=== PATIENT | male | born 1985 | race Caucasian/White ===

== ENCOUNTER → 2021-03-04 | Outpatient (CLI) | payer OTHER ==
--- NOTE | 2021-03-04 18:46 | CONS ---
CONSULTATION DATE OF SERVICE: 03/04/2021 This 35-year-old gentleman was evaluated in the sleep center for possible obstructive sleep apnea-hypopnea syndrome. HISTORY OF PRESENT ILLNESS/SLEEP-WAKE EVALUATION: Patient's usual sleep schedule is from 10 p.m. to 7 a.m. on weekdays and from 11:30 p.m. to 9 a.m. on weekends. No problems with falling asleep, although he reads in bed. He usually sleeps on the side position. The patient denied any significant snoring. He wakes up from sleep several times with nocturia. He does not take any naps during the day. No history of hypnagogic hallucinations, sleep paralysis or cataplexy. [place] Sleepiness Scale is 3. PAST MEDICAL HISTORY: Positive for hypertension, diabetes, hyperlipidemia. PAST SURGICAL HISTORY: None. MEDICATIONS: 1. Metformin 500 mg twice a day. 2. Lisinopril 20 mg once a day. 3. Atorvastatin 40 mg half tablet once a day. SOCIAL HISTORY: Positive history of smoking several cigarettes a day. Quit more than 10 years ago. Alcohol consumption rarely. FAMILY HISTORY: Snoring. REVIEW OF SYSTEMS: No fevers. No double vision. No recent chest pain. No shortness of breath. No abdominal pain. No bleeding episodes. No blood in the urine. No seizure episodes. Sometimes awakenings from sleep with nocturia. PHYSICAL EXAMINATION: GENERAL: A pleasant gentleman without distress. VITAL SIGNS: BP 156/77, HR 93, RR 16, height 6 feet 4 inches, weight 305 pounds, body mass index 37.1, temperature 97.9, oxygen saturation at room air 97%. HEENT: PERRLA, EOMI. Evaluation of oropharynx showed tongue protrudes midline. Low position of soft palate. Mallampati III. NECK: Supple. No JVD. Thyroid is not palpable. Neck is wide: 19-1/2 inches in circumference. LUNGS: Clear to percussion and to auscultation. Good air exchange. No wheezing or rhonchi. HEART: S1, S2 regular. No murmurs, gallops or rubs. ABDOMEN: Obese. ABDOMEN: Soft and nontender. Bowel sounds are present. No organomegaly appreciated. HEART DOCTOR: Awake, alert, and oriented X3. Cranial nerves 2 to 7 intact. There is no fasciculation or atrophy. noted. No focal deficits observed. IMPRESSION: 1. Episodes of awakening from sleep with nocturia, low position of soft palate, Mallampati III, wide neck, 19-1/2 inches in circumference; possible obstructive sleep apnea-hypopnea syndrome. 2. Obesity. BMI 37.1. 3. Diabetes mellitus. 4. Hypertension. 5. Hyperlipidemia. 6. tractor driver teamster. PLAN: 1. Polysomnography for evaluation of patient's breathing during sleep. 2. CPAP/BiPAP titration if sleep study confirms obstructive sleep apnea-hypopnea syndrome. 3. Preferable position during sleep on the side. 4. No driving if patient feels any sleepiness. 5. I will see patient for follow up visit to explain results of testing and following plan. Thank you very much for referring this patient for consultation. Sincerely, Fidel Em MD, PhD, FAASM Diplomat of [employer] [facility] [place] MMODL / IJN: [id number] /
== END ==
LOC: SLEEP 15:01
PROVIDERS: ATTEND Internal Medicine
DX: R35.1 Nocturia (principal); E66.9 Obesity, unspecified; I10 Essential (primary) hypertension; E78.5 Hyperlipidemia, unspecified; Z68.37 Body mass index [BMI] 37.0-37.9, adult

== ENCOUNTER → 2024-12-30 | Outpatient (CLI) | payer OTHER ==
[2024-12-30 10:29] LABS: African American GFR (CKD) >90 (>60 ml/min/1.73 sqM); Blood Urea Nitrogen 15 mg/dL (9-20); Non-African American GFR(CKD) >90 (>60 ml/min/1.73 sqM)
--- NOTE | 2024-12-30 12:19 | CT ---
EXAMINATION TYPE: CT ChestAbdPelvis w con CT DLP: 1358 mGycm, Automated exposure control for dose reduction was used. DATE OF EXAM: 12/30/2024 11:52 AM COMPARISON: None CLINICAL INDICATION:Male, 39 years old with history of C91.10 CHRONIC LYMPHOCYTIC LEUK OF B-CELL TYPE NOT; [facility], Technique: Multiple axial images of the chest, abdomen, and pelvis were obtained following the intrav enous administration of 100 mL Isovue-300. Oral contrast was administered. Two-dimensional coronal an d sagittal reconstructions were obtained. Findings: CHEST: LUNGS/ PLEURA: The lung parenchyma appears unremarkable. AIRWAY: Patent and unremarkable.. HEART: Size within normal limits. . MEDIASTINUM: Right paratracheal enlarged lymph node measuring 1.4 cm short axis. Mildly enlarged subc arinal lymph node measuring 1.4 cm short axis. No hilar adenopathy. VASCULATURE: No aortic aneurysm. MUSCULOSKELETAL: No acute osseous abnormalities. No aggressive osseous lesion. SOFT TISSUES/LYMPH NODES: Bilateral gynecomastia. Bilateral prominent/enlarged axillary lymph nodes. Largest in the left axilla measures 1.7 cm short axis. Largest within the right axilla measures 1.5 c m short axis. LOWER NECK: No significant findings. ABDOMEN: ABDOMEN LIVER: Unremarkable GALLBLADDER AND BILE DUCTS: Unremarkable. PANCREAS: Unremarkable. SPLEEN: Enlarged measuring 17.7 cm in CC dimension. ADRENAL GLANDS: Unremarkable. KIDNEYS AND URETERS: No evidence of hydronephrosis or renal calculus. The ureters are unremarkable. PELVIS BLADDER: Unremarkable REPRODUCTIVE: Unremarkable. ABDOMEN & PELVIS STOMACH AND BOWEL: Stomach and duodenum are unremarkablea few scattered distal colonic diverticula wi thout evidence for acute diverticulitis. No focal wall thickening or surrounding inflammatory changes . The appendix is within normal limits. Enteric contrast reaches the mid small bowel. No evidence of bowel obstruction. PERITONEUM: No evidence of pneumoperitoneum or free fluid. VASCULATURE: No evidence of aortic aneurysm. MUSCULOSKELETAL: No acute osseous abnormalities. No aggressive osseous lesion. Degenerative changes o f the left SI joint with anterior bridging. Degenerative disc disease at L5-S1. LYMPH NODES: Enlarged anterior paraesophageal lymph node measuring 1.2 cm short axis. Conglomerate ad enopathy within the gastrohepatic and periportal regions measuring grossly 9.1 x 5.8 cm (series 3, im age 62). Multiple enlarged para-aortic lymph nodes identified with the exam including an anterior per iaortic lymph node measuring 1.6 mm short axis (series 3, image 79). Several enlarged bilateral iliac chain lymph nodes with the largest on the right measuring up to 2.3 cm short axis. Largest on the le ft measures up to 1.5 cm. Additional enlarged right lower quadrant mesenteric lymph nodes. SOFT TISSUE/ABDOMINAL WALL: Unremarkable IMPRESSION: 1. Multiple enlarged lymph nodes identified within the mediastinum, bilateral axilla, gastrohepatic, periportal, periaortic, right lower quadrant mesentery, and bilateral iliac chains. Most prominent wi thin the gastrohepatic/periportal region with confluent adenopathy. Most consistent with reported elidia kemia. 2. Splenomegaly likely related to #1. [facility], , 12/30/2024 12:16 PM
== END | disposition home or self-care (01) ==
LOC: RADCTMAIN 09:49
PROVIDERS: ATTEND Internal Medicine Hematology & Oncology
DX: D72.820 Lymphocytosis (symptomatic) (principal); I10 Essential (primary) hypertension; E11.9 Type 2 diabetes mellitus without complications; M12.9 Arthropathy, unspecified; R59.0 Localized enlarged lymph nodes; R16.1 Splenomegaly, not elsewhere classified
CPT/HCPCS: 82565; 84520; 71260; 74177; 36415; Q9967